=== PATIENT | male | born 1960 | race Caucasian/White ===

== ENCOUNTER 2024-07-15 09:44 | Observation (INO) | payer MEDICARE, SELFPAY ==
[2024-07-15] VITALS (25 sets, daily range): BP systolic 84–190; BP diastolic 39–122; PULSE 49–88; RESP 11–27; TEMP 36.7–36.8; O2SAT 90–100; BMI 28.4
--- NOTE | 2024-07-15 10:12 | ECG_ITS ---
[facility] Date: 2024-07-15 Pat Name: Josue Neely Department: Room: Gender: Male Speech Assistant: : 1960 Requested By: Louis Light Order Number: [id number] Reading MD: PARAMJIT FARAH Measurements Intervals [place] Rate: 56 P: 56 IA: 188 QRS: 67 QRSD: 89 T: -7 QT: 428 QTc: 415 Interpretive Statements SINUS BRADYCARDIA WITH SINUS ARRHYTHMIA LEFT VENTRICULAR HYPERTROPHY AND ST-T CHANGE [VOLTAGE CRITERIA PLUS ST/T ABNORMALITY] No previous ECG available for comparison Electronically Signed On 07-16-2024 19:27:57 SEAFOOD PROCESS WORKER by PARAMJIT FARAH [email or web address] [id number]
--- NOTE | 2024-07-15 10:12 | XR_ITS ---
WS: [id number] XR chest 1V portable [id number] REASON FOR EXAM: chest pain FINDINGS: Moderate tortuosity and ectasia of the thoracic aorta. Normal heart size. No acute pulmonary parenchymal or pleural abnormality. Moderate degenerative spondylosis in the thoracic spine. XR/XR chest 1V portable [id number] IMPRESSION: No acute chest abnormality.
[2024-07-15] MEDS: aspirin 325 mg Tablet PO (10:15)
[2024-07-15] MEDS: clopidogrel 300 mg Tablet 600 MG PO (10:15)
[2024-07-15] MEDS: heparin 5,000 unit/mL INJ 1 mL 4000 UNIT IVP (10:15)
[2024-07-15] MEDS: morphine 4 mg/mL SDV 1 mL IVP (10:26)
[2024-07-15] MEDS: ondansetron 2 mg/ML SDV 2 mL 4 MG IVP (10:26)
[2024-07-15 10:30] LABS: Basophils % 0.2 %; Eosinophils % 0.2 %; Hematocrit 43.6 % (37-53); Lymphocytes # 1.3 10^3/uL (0.8-4.8); Mean Corpuscular HGB Conc 30.3 g/dL (30-55); Mean Corpuscular Hemoglobin 23.7 pg (27-33); Mean Corpuscular Volume 78.1 fl (82-101); Mean Platelet Volume 9.5 fL (7.4-10.4); Monocytes % 7.6 %; Neutrophils # 10.52 10^3/uL (1.8-7.7); Neutrophils % 81.7 %; Nucleated Red Blood Cells % 0 %; Platelet Count 371 10^3/cmm (157-399); Red Blood Count 5.58 10^6/uL (3.85-5.65); Red Cell Distribution Width 15.5 % (12.1-15.1); White Blood Count 12.88 10^3/uL (3.29-11.43)
[2024-07-15] MEDS: heparin drip 25,000 UNIT/500 ML PREMIX 25 UNIT IV (10:30)
[2024-07-15] MEDS: DOPamine drip 400 MG/250 ML PREMIX 15.99 MG IV (10:30)
[2024-07-15] MEDS: sodium chloride 0.9% 1,000 ML 999 ML IV (10:34)
--- NOTE | 2024-07-15 10:41 | USCV_ITS ---
Josue Neely Age: 63 Gender: M : 1960 Exam Date: 07/15/2024 11:00 Ordering Phys: Louis Garrido DO Technologist: Darren Sheikh Exam Location: [facility] [place] Indication: acs BP: 190 / 122 HR: 77 Rhythm: Sinus Technical Quality: Adequate MEASUREMENTS (Male / Female) Normal Values 2D ECHO LV Diastolic Diameter PLAX 5.0 cm 4.2 - 5.9 / 3.9 - 5.3 cm IVS Diastolic Thickness 1.3 cm 0.6 - 1.0 / 0.6 - 0.9 cm IVS Systolic Thickness 1.6 cm LVPW Diastolic Thickness 1.8 cm 0.6 - 1.0 / 0.6 - 0.9 cm LVPW Systolic Thickness 2.0 cm LVOT Diameter 2.3 cm LV Ejection Fraction 2D Teich 51.4 % LV Ejection Fraction MOD 4C 72.0 % LV Ejection Fraction MOD 2C 61.3 % LV Ejection Fraction 2C AL 63.3 % LA Diameter 3.5 cm RA Systolic Volume 4C AL 37.5 ml RA Systolic Volume 4C MOD 38.1 ml LA Sys Volume AL 50.8 cm cubed LA Sys Volume Index AL 24.6 cm cubed/m squared Aorta at Sinotubular Diameter 2.9 cm IVC Diameter 1.4 cm M-MODE LA Ao Ratio MM 1.0 AV Cusp Separation MM 1.5 cm DOPPLER AV Peak Velocity 141.0 cm/s LVOT Peak Velocity 97.0 cm/s AV Area Cont Eq vti 3.0 cm squared AV Area Cont Eq pk 2.8 cm squared MV Peak Velocity 109.0 cm/s MV Area PHT 3.8 cm squared Mitral E to A Ratio 0.7 TV Peak Velocity 128.0 cm/s TR Peak Velocity 128.0 cm/s TR Peak Gradient 6.6 mmHg TR Mean Velocity 111.0 cm/s TR Mean Gradient 5.0 mmHg TR Velocity Time Integral 30.8 cm PV Peak Velocity 133.0 cm/s RV Ejection Time 0.2 s FINDINGS Left Ventricle Normal left ventricular size, systolic function and wall thickness, with no regional wall motion abnormalities. Left ventricular ejection fraction is estimated at 60 %. Grade I/IV diastolic dysfunction (abnormal relaxation filling pattern), normal to mildly elevated filling pressures. Right Ventricle The right ventricle is normal in size and function. Right Atrium The right atrium is normal in size. Left Atrium The left atrium is normal in size. Mitral Valve Mildly thickened mitral valve. No mitral valve stenosis. Trace mitral valve regurgitation. Aortic Valve Mild aortic valve calcification. No aortic valve stenosis. Trace aortic valve regurgitation. Tricuspid Valve Structurally normal tricuspid valve without significant stenosis or regurgitation. Pulmonic Valve Structurally normal pulmonic valve without significant stenosis. There is no pulmonic regurgitation. Pericardium Normal pericardium without effusion. Aorta Normal ascending aorta dimension. IVC The inferior vena cava appears normal. CONCLUSIONS Normal left ventricular size, systolic function and wall thickness, with no regional wall motion abnormalities. Left ventricular ejection fraction is estimated at 60 %. Grade I/IV diastolic dysfunction (abnormal relaxation filling pattern), normal to mildly elevated filling pressures. No significant valve abnormalities. There is no pericardial effusion. Right atrial pressure is around 5 mm of mercury. Jayda Reeves MD (Electronically Signed) Final Date: 15 July 2024 11:53 S
--- NOTE | 2024-07-15 10:42 | W.ED.NECK ---
HPI - Neck Pain/Injury General: Chief Complaint: Neck Pain/Injury Stated Complaint: severe neck pain Time Seen by Provider: 07/15/24 10:12 History of Present Illness: 63-year-old male presents emergency room complaining of neck pain nausea and vomiting. Symptoms began yesterday morning. When asked directly about chest pain he said he has had this intermittently since yesterday he has had some chest discomfort but not having any chest pain now later when I came back in the room he is grasping at his left side of his chest. He is pale and diaphoretic anxious has a sense of impending doom. During the course of the workup patient bradycardia down into the 40s see notes below he also became hypoxic and hypotensive. No recent trauma or fall. Not previously had neck pain problems in the past. He was told several years ago to have a stress test but never did have it done. He has no known history of cardiac disease or arrhythmias. Related Data Home Medications ?Medication ?Instructions ?Recorded ?Confirmed No Known Home Medications 07/15/24 07/15/24 Allergies Allergy/AdvReac Type Severity Reaction Status Date / Time No Known Allergies Allergy Verified 07/15/24 10:14 Review of Systems Const: Denies: fever(s) or chills Card: Denies: chest pain Resp: Reports: dyspnea GI: Denies: abdominal pain : Denies: dysuria, urinary frequency or urinary urgency Musc: Reports: neck pain; Denies: back pain Skin/Breast: Denies: rash Physical Exam Const: GENERAL APPEARANCE: cooperative ORIENTATION/CONSCIOUSNESS: Yes awake, Yes oriented to person, Yes oriented to place and Yes oriented to time HENMT: COMMON NORMALS: normocephalic, atraumatic and hearing grossly normal bilaterally HEAD & SCALP: normocephalic and atraumatic Resp: COMMON NORMALS: normal respiratory effort, No retractions, No use of accessory muscles and clear to auscultation bilaterally AUSCULTATION: clear to auscultation bilaterally Cardio: COMMON NORMALS: regular rate, regular rhythm and No murmurs present (Cardio) RATE: regular rate RHYTHM: regular rhythm GI: COMMON NORMALS: Soft to palpation and No hepatosplenomegaly present AUSCULTATION: Yes normoactive bowel sounds PALPATION: Yes Soft to palpation, No Tenderness to palpation present (GI), No Guarding due to palpation present (GI) and Yes No hepatosplenomegaly present Extremity: COMMON NORMALS: normal to inspection, capillary refill normal, no clubbing, cyanosis or edema, no calf tenderness and no pedal edema Neuro: SENSORIUM/ORIENTATION: Yes oriented to person, Yes oriented to place and Yes oriented to time Skin: COMMON NORMALS: no rashes or lesions noted GENERAL SKIN EXAM: no rashes or lesions noted Course Vital Signs: Vital signs: Vital Signs Temperature 98.1 F 07/15/24 10:01 Pulse Rate 69 07/15/24 14:15 Respiratory Rate 20 H 07/15/24 11:45 Blood Pressure 152/88 07/15/24 14:15 Pulse Oximetry 99 07/15/24 14:15 Oxygen Delivery Me thod Room Air 07/15/24 10:41 Oxygen Flow Rate 2 07/15/24 10:30 MDM - Neck Pain/Injury Medical Decision Making While we are still evaluating the patient began to bradycardia down into the 40s he was moved to one of the trauma rooms. There he was placed in Trendelenburg. He was given 1/2 mg atropine and started on dopamine his blood pressure decreased to the 80s systolic range and his oxygen saturations decreased to the upper 80s. He was put on 2 L of oxygen dopamine was started and he was placed in Trendelenburg and given fluids his blood pressure did improve. Currently he still has significant ST depression but he has a heart rate of 82 blood pressure 146/74 and oxygen on 2 L is 100%. Because he felt the patient was unstable asked Dr. Vasquez to evaluate him in conjunction with his ST depression. My suspicion was he would convert to a ST elevation ND. We did serial EKGs they continue to show inferior lateral ST depression with no ST elevation. Patient had mentation change as well. This was after the morphine. Dr. Reeves is asked that we get a stat echo to look for wall motion abnormality. He has been given Plavix and aspirin and heparin has been initiated. We were able to titrate the dopamine back off after fluids patient blood pressure is improved. Initial troponin negative. D-dimer slightly elevated CT of the neck and CTA of the chest there is no acute pathology neck is normal CTA chest did not show any PEs or any other abnormalities. We are able to titrate off the oxygen as well EKG changes began to resolve. Discussed Dr. aguirre again at this point she he wants to continue to follow. Echocardiogram did not show any wall motion abnormalities. Will admit the patient talk to Dr. Gonzalez. Consult Dr. Vasquez Medical Records I reviewed the patient's medical records. Lab Data I reviewed the patient's lab results. 07/15/24 10:24 07/15/24 10:24 Radiology Impressions Chest X-Ray 07/15/24 10:12 IMPRESSION: No acute chest abnormality. Cervical Spine CT 07/15/24 12:04 IMPRESSION: No evidence of acute fracture or dislocation. Chest CTA 07/15/24 12:04 IMPRESSION: 1. No evidence of pulmonary embolus 2. Dependent atelectasis. No focal consolidation. 3. Cardiomegaly. 4. No other acute findings. Laboratory Results WBC 12.88 10^3/uL (3.29-11.43) H 07/15/24 10:24 RBC 5.58 10^6/uL (3.85-5.65) 07/15/24 10:24 Hgb 13.20 g/dL (11.27-16.99) 07/15/24 10:24 Hct 43.6 % (37-53) 07/15/24 10:24 MCV 78.1 fl (82-101) L 07/15/24 10:24 MCH 23.7 pg (27-33) L 07/15/24 10:24 MCHC 30.3 g/dL (30-55) 07/15/24 10:24 RDW 15.5 % (12.1-15.1) H 07/15/24 10:24 Plt Count 371 10^3/cmm (157-399) 07/15/24 10:24 MPV 9.5 fL (7.4-10.4) 07/15/24 10:24 Neut % (Auto) 81.7 % 07/15/24 10:24 Lymph % (Auto) 10.0 % 07/15/24 10:24 Mcpherson % (Auto) 7.6 % 07/15/24 10:24 Eos % (Auto) 0.2 % 07/15/24 10:24 Baso % (Auto) 0.2 % 07/15/24 10:24 Neut # (Auto) 10.52 10^3/uL (1.8-7.7) H 07/15/24 10:24 Lymph # (Auto) 1.3 10^3/uL (0.8-4.8) 07/15/24 10:24 Mcpherson # (Auto) 1.0 10^3/uL (0.2-0.9) H 07/15/24 10:24 Eos # (Auto) 0.0 10^3/uL (0.0-0.8) 07/15/24 10:24 Baso # (Auto) 0.0 10^3/uL (0.0-0.1) 07/15/24 10:24 Nucleated RBC % (auto) 0 % 07/15/24 10:24 Nucleated RBCs # 0.0 /100WBC 07/15/24 10:24 D-Dimer 0.62 ug/mLFEU (0-0.59) H 07/15/24 10:24 Sodium 138 mmol/L (136-145) 07/15/24 10:24 Potassium 4.2 mmol/L (3.5-5.1) 07/15/24 10:24 Chloride 98 mmol/L (98-107) 07/15/24 10:24 Carbon Dioxide 22 mmol/L (22-29) 07/15/24 10:24 Anion Gap 22.2 (5-19) H 07/15/24 10:24 BUN 12 mg/dL (8-23) 07/15/24 10:24 Creatinine 1.1 mg/dL (0.7-1.2) 07/15/24 10:24 GFR Calculation 67.2 mL/min (90-130) L 07/15/24 10:24 Glucose 135 mg/dL (65-115) H 07/15/24 10:24 Calculated Osmolality 288 mOsm/kg (285-295) 07/15/24 10:24 Calcium 10.0 mg/dL (8.5-10.5) 07/15/24 10:24 Total Bilirubin 0.7 mg/dL (0.15-1.2) 07/15/24 10:24 AST 20 U/L (0-40) 07/15/24 10:24 ALT 10 U/L (0-41) 07/15/24 10:24 Alkaline Phosphatase 96 U/L (40-130) 07/15/24 10:24 Troponin T Baseline 10 ng/L (0-15) 07/15/24 10:24 Troponin T 120 Minute 10.03 ng/L (0-15) 07/15/24 12:44 Delta Troponin T 0.03 ABS# (0-10) 07/15/24 12:44 Total Protein 7.8 g/dL (6.6-8.7) 07/15/24 10:24 Albumin 4.8 g/dL (3.5-5.2) 07/15/24 10:24 Globulin 3.0 g/dL (1.3-4.6) 07/15/24 10:24 All radiology interpretation(s) finalized by discharge Discharge Plan Discharge Patient Disposition: Admitted As Inpatient Admit Provider: Karsten Ricardo Clinical Impression: ST segment depression, Bradycardia, Neck pain Condition: Stable Coding Level of Care Code ED Test And Turn Up Technician for Luz Laughlin
[2024-07-15 10:43] LABS: D Dimer 0.62 ug/mLFEU (0-0.59)
[2024-07-15 10:46] LABS: Troponin(5th) Baseline 10 ng/L (0-15)
[2024-07-15 10:48] LABS: Alanine Aminotransferase 10 U/L (0-41); Albumin Level 4.8 g/dL (3.5-5.2); Alkaline Phosphatase 96 U/L (40-130); Blood Urea Nitrogen 12 mg/dL (8-23); Carbon Dioxide 22 mmol/L (22-29); Chloride 98 mmol/L (98-107); Glomerular Filtration Rate 67.2 mL/min (90-130); Glucose 135 mg/dL (65-115); Osmolality Calculated 288 mOsm/kg (285-295); Sodium 138 mmol/L (136-145); Total Bilirubin 0.7 mg/dL (0.15-1.2); Total Protein 7.8 g/dL (6.6-8.7)
[2024-07-15 10:54] LABS: Anion Gap 22.2 (5-19); Aspartate Amino Transferase 20 U/L (0-40); Potassium 4.2 mmol/L (3.5-5.1)
--- NOTE | 2024-07-15 11:36 | P.CONIM_ITS ---
Providers/Reason For Consult 2 Consulting Physician/Specialty*: Jayda Reeves MD Reason for Consult*: Abnormal EKG, neck pain Requesting Physician: Dr. Garrido History of Present Illness History of Present Illness This is a very pleasant 63-year-old gentleman that presented to the emergency room with main complaint of neck pain, nausea, vomiting. He stated symptoms began yesterday morning. He denies any chest pain at this time. Denies any history of coronary artery disease or any cardiac issues. He states he does not see a doctor much. Reports a history of high blood pressure. No nicotine use per patient. During the course of his workup he did have some bradycardia down in the 40s. He had atropine and was placed on a dopamine drip. His EKG showed ST depression in inferolateral leads consistent with possible left ventricular hypertrophy. We do not have any other EKGs for comparison. At this time patient is chest pain-free. Oxygen saturation 96% on room air. Review of Systems 2 Narrative: Consitutional: denies fever, chills, body aches, or changes in appetite, denies abnormal weight loss Eyes: Denies changes in vision Card: Denies chest pain, palpitations, irregular heart rhythm, edema, syncope, shortness of breath, orthopnea, leg pain with exertion Resp: Denies shortness of breath, denies hemoptysis, denies cough GI: denies abdominal pain, denies nausea or voimting, denies blood in stool : denies blood in urine, denies dysuria Musc: reports neck pain, denies back pain, jaw pain or chest pain Skin: Denies rash, lesions, or wounds, denies changes to skin color Neuro: Denies nubmness in extremities, h/a, s/s of stroke Diogo: Denies easy bruiding/bleeding Medications/Allergies Home Medications ?Medication ?Instructions ?Recorded ?Confirmed ?Last Taken ?Type No Known Home Medications 07/15/2407/02 Unknown History Allergies Allergy/AdvReac Type Severity Reaction Status Date / Time No Known Allergies Allergy Verified 07/15/24 10:14 Current Medications Generic Name Dose Route Start Last Admin Trade Name Freq PRN Reason Stop Dose Admin Heparin Sodium/Sodium Chloride 25,000 unit in 500 mls @ 0 mls/hr 07/15/24 10:30 07/15/24 10:30 Heparin Drip IV 14.66 unit/kg/hr CONT RENA 25 mls/hr Administration Protocol Per Protocol Dopamine HCl/Dextrose 400 mg in 250 mls @ 15.989 mls/hr 07/15/24 11:00 07/15/24 10:52 Intropin Drip IV 3 mcg/kg/min CONT RENA 9.59 mls/hr Titration Protocol 5 MCG/KG/MIN Sodium Chloride 1,000 mls @ 999 mls/hr 07/15/24 11:12 07/15/24 10:34 Sodium Chloride 0.9% IV 07/15/24 12:12 999 mls/hr .Q1H1M ONE Administration Vitals/I&O/Wt Last Vital Signs Temp 98.1 F 07/15/24 10:01 Pulse 78 07/15/24 10:41 Resp 18 07/15/24 10:41 BP 190/122 07/15/24 10:45 Pulse Ox 96 07/15/24 10:41 O2 Del Method Room Air 07/15/24 10:41 O2 Flow Rate 2 07/15/24 10:30 07/14/24 07/15/24 07/15/24 22:59 06:59 14:59 Intake Total 5.863 / 5.863 Balance 5.863 / 5.863 Weight last 48 hrs Weight 188 lb Physical Exam 2 Narrative: General: No apparent distress, healthy appearing, well nourished HENMT: normoceophalic Muskuloskeletal: Full ROM, shaking slightly Respiratory: Normal respiratory effort, clear to auscultation bilaterally throughout all lung paredes, no use of accessory muscles Cardio: No JVD, regular rate, regular rhythm, S1 S2 normal, no murmurs, peripheral pulses 2+ radial palpated bilaterally GI: Normal to inspection, nondistended Extremities: Full ROM, normal, normal capillary refill, no cyanosis or edema Neuro: Alert and oriented x4, no focal motor deficits Psych: Affect normal, denies suicidal ideation, mental status grossly normal Skin: No rashes or lesions noted, no wounds Data 07/15/24 10:24 07/15/24 10:24 A&P Assessment and plan (1) Neck pain: (2) ST segment depression: (3) Hypertension: Qualifiers: Hypertension type: primary hypertension Qualified Code(s): I10 - Essential (primary) hypertension (4) Bradycardia: Plan At this time patient has ST depression but no chest pain present. Our recommendation is to trend troponin, serial EKG, echo, agree with heparin drip. Will continue to monitor for worsening symptoms. At this time, no evidence of acute NM. Further recommendations to be made after workup is done. Thank you, Dr. Garrido, for allowing us to care for this gentleman. PDMP PDMP Reviewed: Not Reviewed Consult Attestations 2 Medical Necessity Statement: Deferred to primary. Coding Level of Care Code Acute Code for Chg Fwd Diagnoses Neck pain M54.2 ST segment depression R94.31 Primary hypertension I10 Hypertension type: primary hypertension Bradycardia R00.1
--- NOTE | 2024-07-15 12:04 | CT_ITS ---
WS: [id number] CT CERVICAL TRAUMA TECHNIQUE: Noncontrast CT of the cervical spine with coronal and sagittal reformatted images. CLINICAL INFORMATION: neck pain COMPARISON: None. DLP: 236.[address] scans at [facility] use at least one of these dose optimization techniques: automated exposure control; mA and/or kV adjustment per patient size (includes targeted exams where dose is matched to clinical indication); or iterative reconstruction. FINDINGS: Straightening of the normal cervical lordosis. Moderate spondylitic changes. Disc narrowing worse at C5-C6 and C6-C7. Normal craniocervical junction. Normal C1-C2 articulation. Dens is normal in appearance. Normal occipital condyles. No high-grade spinal canal narrowing. Normal C1 ring. No evidence of acute fracture or dislocation. Normal prevertebral soft tissues. Mastoids air cells are well aerated. CT/CT cervical spin wo con* [id number] IMPRESSION: No evidence of acute fracture or dislocation.
--- NOTE | 2024-07-15 12:04 | CT_ITS ---
WS: [id number] CTA OF THE CHEST WITH PULMONARY EMBOLISM PROTOCOL TECHNIQUE: High-resolution contrast enhanced CTA of the chest with coronal and sagittal reformatted images with pulmonary embolism protocol. MIP images are also reviewed. CLINICAL INFORMATION: elevated d dimer COMPARISON: None. DLP: 482.[address] scans at [facility] use at least one of these dose optimization techniques: automated exposure control; mA and/or kV adjustment per patient size (includes targeted exams where dose is matched to clinical indication); or iterative reconstruction. FINDINGS: Beam-hardening artifact degrades some images. Proximal main pulmonary arteries are normal. No evidence of pulmonary embolus. Aortic calcification. Coronary calcification. Normal caliber thoracic aorta. No mediastinal or hilar lymphadenopathy. No axillary lymphadenopathy. Dependent atelectasis. No focal consolidation. Chronic emphysematous changes. Shallow inspiration Adrenal glands are normal. Splenic artery calcification. Tiny esophageal hiatal hernia. CT/CT angio chest PE protcl [id number] IMPRESSION: 1. No evidence of pulmonary embolus 2. Dependent atelectasis. No focal consolidation. 3. Cardiomegaly. 4. No other acute findings.
--- NOTE | 2024-07-15 12:12 | ECG_ITS ---
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: : 1960 Requested By: Louis Light Order Number: [id number] Heather MD: PARAMJIT FARAH Measurements Intervals [place] Rate: 48 P: 172 DE: 194 QRS: 159 QRSD: 89 T: 252 QT: 471 QTc: 424 Interpretive Statements SINUS BRADYCARDIA ARM LEADS REVERSED [INVERTED P AND QRS IN I] Compared to ECG 07/15/2024 10:19:32 Sinus arrhythmia no longer present Left ventricular hypertrophy no longer present ST (T wave) deviation no longer present Electronically Signed On 07-16-2024 19:33:45 AIRCRAFT ENGINE TECHNICIAN by PARAMJIT FARAH [id number]
[2024-07-15 13:16] LABS: Troponin 5 2HR 10.03 ng/L (0-15); Troponin 5 2HR Delta 0.03 ABS# (0-10)
--- NOTE | 2024-07-15 14:03 | ECG_ITS ---
[employer] Test Date: 2024-07-15 Pat Name: Josue Neely Department: Room: Gender: Male Senior Advisor: : 1960 Requested By: Louis Light Order Number: [id number] Heather MD: PARAMJIT FARAH Measurements Intervals [place] Rate: 78 P: 65 AR: 170 QRS: 67 QRSD: 93 T: 71 QT: 390 QTc: 447 Interpretive Statements SINUS RHYTHM LEFT VENTRICULAR HYPERTROPHY AND ST-T CHANGE [VOLTAGE CRITERIA PLUS ST/T ABNORMALITY] Compared to ECG 07/15/2024 10:32:57 Ectopic atrial rhythm no longer present ST (T wave) deviation still present Electronically Signed On 07-16-2024 19:18:34 EQUITY RESEARCH ANALYST by PARAMJIT FARAH [id number]
--- NOTE | 2024-07-15 14:03 | ECG_ITS ---
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: : 1960 Requested By: Louis Light Order Number: [id number] Reading MD: PARAMJIT FARAH Measurements Intervals [place] Rate: 73 P: -51 MA: 160 QRS: 63 QRSD: 89 T: 265 QT: 408 QTc: 451 Interpretive Statements ECTOPIC ATRIAL RHYTHM LEFT VENTRICULAR HYPERTROPHY AND ST-T CHANGE [VOLTAGE CRITERIA PLUS ST/T ABNORMALITY] inferolateral ST depression cannot rule out ischemia may be repolarization abnormality Compared to ECG 07/15/2024 10:27:40 Ectopic atrial rhythm now present Sinus rhythm no longer present Myocardial infarct finding no longer present ST (T wave) deviation still present Electronically Signed On 07-16-2024 19:27:41 PLANT CONTROL OPERATOR by PARAMJIT FARAH [email or web address] [id number]
--- NOTE | 2024-07-15 14:03 | ECG_ITS ---
[employer] Test Date: 2024-07-15 Pat Name: Josue Neely Department: Room: Gender: Male Puppy Sitter: : 1960 Requested By: Louis Light Order Number: [id number] Heather MD: PARAMJIT FARAH Measurements Intervals [place] Rate: 64 P: 41 MO: 189 QRS: 52 QRSD: 88 T: 49 QT: 450 QTc: 466 Interpretive Statements SINUS RHYTHM WITH OCCASIONAL SUPRAVENTRICULAR PREMATURE COMPLEXES LEFT VENTRICULAR HYPERTROPHY AND ST-T CHANGE [VOLTAGE CRITERIA PLUS ST/T ABNORMALITY] POSSIBLE SEPTAL MYOCARDIAL INFARCTION , PROBABLY OLD [30 ms Q WAVE IN V1/V2] Compared to ECG 07/15/2024 10:26:00 Left ventricular hypertrophy now present ST (T wave) deviation now present Myocardial infarct finding now present Sinus bradycardia no longer present Electronically Signed On 07-16-2024 19:27:50 CRIME SCENE ANALYST by PARAMJIT FARAH [email or web address] [id number]
--- NOTE | 2024-07-15 14:04 | ECG_ITS ---
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: : 1960 Requested By: Louis Light Order Number: [id number] Heather MD: PARAMJIT FARAH Measurements Intervals [place] Rate: 91 P: 55 [place]: 193 QRS: 47 QRSD: 90 T: 233 QT: 337 QTc: 416 Interpretive Statements SINUS RHYTHM POSSIBLE RIGHT ATRIAL ENLARGEMENT [0.25mV P-WAVE] LEFT ATRIAL ENLARGEMENT [-0.15mV P-WAVE IN V1/V2] LEFT VENTRICULAR HYPERTROPHY AND ST-T CHANGE [VOLTAGE CRITERIA PLUS ST/T ABNORMALITY] INTERPRETATION BASED ON A DEFAULT AGE OF 40 YEARS No previous ECG available for comparison Electronically Signed On 07-16-2024 19:28:08 UNIT AID by PARAMJIT FARAH [email or web address] [id number]
[2024-07-15 15:32] LABS: Glucose Point of Care 112 mg/dL (70-110)
[2024-07-15 15:58] LABS: Partial Thromboplastin Time 37.3 SECONDS (23.9-36.7)
--- NOTE | 2024-07-15 16:12 | ECG_ITS ---
[employer] Test Date: 2024-07-15 Pat Name: Josue Neely Department: Room: 112 Gender: Male Mortgage Operations Manager: : 1960 Requested By: Louis Light Order Number: [id number] Reading MD: PARAMJIT FARAH Measurements Intervals [place] Rate: 75 P: 18 PA: 187 QRS: 40 QRSD: 93 T: 249 QT: 397 QTc: 443 Interpretive Statements SINUS RHYTHM LEFT VENTRICULAR HYPERTROPHY AND ST-T CHANGE [VOLTAGE CRITERIA PLUS ST/T ABNORMALITY] Compared to ECG 07/15/2024 10:39:26 No significant changes Electronically Signed On 07-16-2024 19:33:18 CONDUIT INSTALLER by PARAMJIT FARAH [email or web address] [id number]
--- NOTE | 2024-07-15 16:36 | P.HP_ITS ---
Providers/Chief Complaint 2 Admitting Physician: Karsten Ricardo Chief Complaint: severe neck pain History of Present Illness 55-year-old male with no significant past medical history presents with neck pain after lifting firewood a few nights ago. The patient describes neck pain that started while lifting firewood. He denies any radiation of pain into the arms, numbness, tingling, or weakness. Associated symptoms include fatigue. The patient denies chest pain, shortness of breath, leg pain, back pain, or urinary issues. Noted difficulty with turning his head right and left with out pain. No alleviating factors. Initial evaluation in the ER revealed: - Laboratory Findings: WBC 12.8, hemoglobin 13, hematocrit 43, platelets 371, sodium 138, potassium 4.2, chloride 98, bicarbonate 22, BUN 22, creatinine 1.1, troponin T 0.03 baseline and 0.10 repeat, D-dimer 0.62. - Imaging Studies: Chest x-ray without acute cardiopulmonary abnormality, CT cervical spine without fracture or dislocation, CT chest negative for pulmonary embolism with cardiomegaly and dependent atelectasis. The patient was briefly hypoxic and hypotensive with bradycardia to the 40s, treated with atropine and started on a dopamine drip. Cardiology was consulted and performed an echocardiogram showing an ejection fraction of 60% without regional wall motion abnormalities, grade 1 diastolic dysfunction, and no valvular abnormalities. He was given aspirin 325 mg, loaded with Plavix 600 mg, and given a heparin bolus, but no drip was initiated after cardiology evaluation did not suggest acute coronary syndrome. The patient is now normotensive and no longer hypoxic or requiring oxygen. Review of Systems 2 General: Reports: 10 or more systems reviewed and unremarkable except in HPI and below Medications/Allergies Home Medications ?Medication ?Instructions ?Recorded ?Confirmed ?Last Taken ?Type No Known Home Medications 07/15/2407/02 Unknown History Allergies Allergy/AdvReac Type Severity Reaction Status Date / Time No Known Allergies Allergy Verified 07/15/24 10:14 Vitals/I&O/Wt Last Vital Signs Temp 98.1 F 07/15/24 10:01 Pulse 78 07/15/24 16:10 Resp 18 07/15/24 16:10 BP 171/93 07/15/24 16:10 Pulse Ox 92 07/15/24 16:10 O2 Del Method Room Air 07/15/24 10:41 O2 Flow Rate 2 07/15/24 10:30 07/15/24 07/15/24 07/15/24 06:59 14:59 22:59 Intake Total 99.444 / 99.444 1000 / 1099.444 Balance 99.444 / 99.444 1000 / 1099.444 Weight last 48 hrs Weight 85.275 kg Physical Exam 2 Narrative: Physical Exam General: 55-year-old male, sitting up in bed, in no acute distress HEENT: Grossly unremarkable Neck: - Decreased range of motion with turning head right and left due to pain - No lymphadenopathy or thyromegaly - No JVD Cardiovascular: - Regular rate and rhythm - Normal S1 and S2, no murmurs, rubs, or gallops Respiratory: - Clear to auscultation bilaterally - No wheezes, rales, or rhonchi Abdomen: - Soft, non-tender, non-distended - Normoactive bowel sounds - No organomegaly or masses Neurologic: - Alert and oriented x3 - CN II-XII grossly intact - No focal neurologic deficits Musculoskeletal: - Neck pain with movement - No tenderness to palpation over cervic al spine - Good strength and sensation in upper a nd lower extremities Data 07/15/24 10:24 07/15/24 10:24 A&P Assessment and plan (1) Bradycardia: (2) Hypertension: Qualifiers: Hypertension type: primary hypertension Qualified Code(s): I10 - Essential (primary) hypertension (3) Neck pain: Plan Bradycardia - Episode of bradycardia in ER requiring atropine and briefly on dopamine drip, now resolved. - EKG initially showing ST-depression per ER for with cardiology was consulted. Echo appeared stable. Troponin remained negative. - No longer on dopanine. - No futher cardiac work up planned Plan: 1. Telemetry monitoring overnight to assess for recurrence. 2. Discontinued dopamine if heart rate remains stable. 3. Consider outpatient stress test Neck Pain - Likely musculoskeletal strain from lifting firewood, without evidence of fracture or dislocation on CT cervical spine. Differential Diagnosis: 1. Muscle strain from heavy lifting. 2. Less likely cervical radiculopathy, though no significant neurologic deficits noted. Plan: 1. Muscle relaxant and Tylenol for pain control. 2. Occupational therapy for range of motion exercises. 3. Reassess symptoms and consider outpatient MRI if no improvement. Marijuana Use -Current marijuana use via pipe, frequency unclear. Plan: 1. [facility] [place] on health risks of marijuana smoking. Hypertension - Blood pressure 152/88 on arrival, likely exacerbated by acute pain and stress. Plan: 1. Continue to monitor blood pressure during hospitalization. 2. Consider initiating antihypertensive therapy if persistently elevated. PDMP PDMP Reviewed: Not Reviewed Attestations 2 Medical Necessity Statement*: Anticipate less than 2 midnight stay for eval and treatment Coding Level of Care Code Acute Code for Chg Fwd Diagnoses Bradycardia R00.1 Primary hypertension I10 Hypertension type: primary hypertension Neck pain M54.2
[2024-07-15 17:41] LABS: Troponin 5 6HR 10.47 ng/L (0-15); Troponin 5 6HR Delta 0.47 ng/L (0-12)
[2024-07-15] MEDS: enoxaparin 40 mg/0.4 mL Syringe SUBCUT (18:21)
[2024-07-15] MEDS: HYDROcodone-acetaminophen 5-325 mg Tablet 1 TAB PO (20:33)
[2024-07-15 22:14] LABS: Amphetamines Screen Urine Negative (Negative); Barbiturates Screen Urine Negative (Negative); Benzodiazepines Screen Urine Negative (Negative); Cocaine Screen Urine Negative (Negative); Opiate Screen Urine Positive (Negative); PCP Screen Urine Negative (Negative); THC Screen Urine Positive (Negative)
[2024-07-16] VITALS: BP 151/84; PULSE 97; RESP 19; TEMP 36.8; O2SAT 95
[2024-07-16 04:00] VITALS: BP 168/96; PULSE 90; RESP 14; TEMP 36.9; O2SAT 97
[2024-07-16 04:08] LABS: Basophils % 0.2 %; Eosinophils % 0.1 %; Hematocrit 37.7 % (37-53); Lymphocytes # 1.4 10^3/uL (0.8-4.8); Lymphocytes % 11.1 %; Mean Corpuscular Volume 77.4 fl (82-101); Mean Platelet Volume 10.4 fL (7.4-10.4); Monocytes # 1.4 10^3/uL (0.2-0.9); Monocytes % 11.1 %; Neutrophils % 77.2 %; Nucleated Red Blood Cells % 0 %; Platelet Count 320 10^3/cmm (157-399); Red Blood Count 4.87 10^6/uL (3.85-5.65); Red Cell Distribution Width 15.7 % (12.1-15.1); White Blood Count 12.94 10^3/uL (3.29-11.43)
[2024-07-16 04:27] LABS: Chol HDL Ratio 3.09 mg/dL (1.0-5.00); Cholesterol 179 mg/dL (0-200); HDL Cholesterol 58 mg/dL (60-100); LDL Cholesterol Calculated 106 mg/dL (50-129); LDL HDL Ratio 1.83 RATIO (0.00-3.22); Triglycerides 73 mg/dL (0-150)
[2024-07-16 04:36] LABS: Alanine Aminotransferase 8 U/L (0-41); Alkaline Phosphatase 81 U/L (40-130); Anion Gap 15.9 (5-19); Aspartate Amino Transferase 14 U/L (0-40); Blood Urea Nitrogen 16 mg/dL (8-23); Calcium 9.2 mg/dL (8.5-10.5); Carbon Dioxide 24 mmol/L (22-29); Chloride 101 mmol/L (98-107); Glucose 111 mg/dL (65-115); Osmolality Calculated 286 mOsm/kg (285-295); Potassium 3.9 mmol/L (3.5-5.1); Sodium 137 mmol/L (136-145); Thyroid Stimulating Hormone 0.51 uIU/mL (0.27-4.20); Total Bilirubin 0.5 mg/dL (0.15-1.2)
[2024-07-16 04:42] LABS: Estmated Average Glucose 94; Hemoglobin A1C 4.9 % (4.0-6.0)
[2024-07-16 06:00] VITALS: PULSE 76
[2024-07-16 07:14] VITALS: BP 164/96; PULSE 76; RESP 17; TEMP 36.4; O2SAT 96
[2024-07-16] MEDS: acetaminophen 325 mg Tablet 650 MG PO (08:14)
--- NOTE | 2024-07-16 10:06 | PC.CHAP ---
Pastoral Care Encounter/Spiritual Assessment Type of Contact [] Declined media theorist and author of visit [] Patient/Family/Request visit [] Outpatient visit [] Follow-up visit [] Physician referral [] Code/Alert [] Routine visit [] Staff referral [] Actively dying [] Patient sleeping [] Family support [] [x] Out of room [] Palliative care [] [] Receiving care in room [] Pre-surgical visit [] Trauma [] Long length of stay [] ICU visit [] Other: Relational/Emotional Strength [] Patient feels connected with others/family/visitors/staff [] Distress [] Loneliness/isolation [] Abandonment Spirituality of Patient [] Person of Suz[place] [] Attends [employer] of their [place] [] Believes in Prayer [] Reads Bible or Mormon materials [] There are Spiritual issues to be addressed 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 [] Prayer [] Active listening [] Non-anxious presence [] Spiritual/emotional support [] Crisis/trauma care [] Spiritual counseling [] Bereavement support [] Provided bereavement packet [] Provided Bible/devotional materials [] Provided toy/stuffed animal, coloring book to patient or family member [] Provided Communion [] Anointing/[place] [] Salvation [] Completed spiritual assessment [] Other: Impact on Illness or Injury [] Angry [] Fearful [] Anxious [] Often cries [] Exhaustion [] Unable to work [] Unable to attend congregation [] Unable to walk/stand [] Unable to read [] Unable to drive [] Unable to eat/drink [] Unable to sleep [] Unable to be with family [] Patient intubated [] Other: Summary Time spent with patient
[2024-07-16 11:26] VITALS: BP 169/103; PULSE 75; RESP 11; TEMP 36.5; O2SAT 96
--- NOTE | 2024-07-16 13:09 | PC.NURSE ---
shift report Pt reports of a headache and neck pain this morning. Gave 650 mg of Tylenol PRN for a pain scale of 6/10. Reassess pain 2 hrs after and pt stated, it went away. Applied warm compress as well for neck pain. pt stated it relieved his pain.
[2024-07-16 14:23] VITALS: BP 169/100; PULSE 72; O2SAT 96
--- NOTE | 2024-07-22 14:29 | P.DS_ITS ---
Discharge Providers Date of Admission: 07/15/24 14:23 Date of Discharge: July 16, 2024 Attending Provider at Admission: Karsten Ricardo Attending Provider at Discharge: Karsten Ricardo Diagnoses at Discharge Discharge Diagnosis (1) Bradycardia: Status: Resolved (2) Hypertension: Status: Acute Qualifiers: Hypertension type: primary hypertension Qualified Code(s): I10 - Essential (primary) hypertension (3) Neck pain: Status: Acute Reason for Visit Reason for Visit: severe neck pain Hospital Course Hospital Course 55-year-old male with no significant past medical history presents with neck pain after lifting firewood a few nights ago. The patient describes neck pain that started while lifting firewood. He denies any radiation of pain into the arms, numbness, tingling, or weakness. Associated symptoms include fatigue. The patient denies chest pain, shortness of breath, leg pain, back pain, or urinary issues. Noted difficulty with turning his head right and left with out pain. No alleviating factors. Initial evaluation in the ER revealed: - Laboratory Findings: WBC 12.8, hemoglobin 13, hematocrit 43, platelets 371, sodium 138, potassium 4.2, chloride 98, bicarbonate 22, BUN 22, creatinine 1.1, troponin T 0.03 baseline and 0.10 repeat, D-dimer 0.62. - Imaging Studies: Chest x-ray without acute cardiopulmonary abnormality, CT cervical spine without fracture or dislocation, CT chest negative for pulmonary embolism with cardiomegaly and dependent atelectasis. The patient was briefly hypoxic and hypotensive with bradycardia to the 40s, treated with atropine and started on a dopamine drip. Cardiology was consulted and performed an echocardiogram showing an ejection fraction of 60% without regional wall motion abnormalities, grade 1 diastolic dysfunction, and no valvular abnormalities. He was given aspirin 325 mg, loaded with Plavix 600 mg, and given a heparin bolus, but no drip was initiated after cardiology evaluation did not suggest acute coronary syndrome. patient was admitted to the hospital and monitored overnight. On day 2 of hospitalization he was wanting to be di scharged home. Stated that his mobility and pain in his neck had improved. Had no limitations with ambulation. Did not have any recurrence of hypotension or bradycardia on cardiac step-down unit. Patient had denied any chest discomfort. Also did not have any shortness of breath. Discussed with Cardiology who did not have any further recommendations and cleared patient for discharge. Patient was counseled on home blood pressure monitoring and recording given hypertensive episodes which may have correlated with patient's pain however I did tell him that he may very well likely have underlying hypertensive disorder. Verbalized understanding of this. Patient was discharged in stable condition. Advised him to follow up with primary care physician within 1 week after discharge. Physical Exam Narrative: Physical Exam General: 55-year-old male, sitting up in bed, in no acute distress HEENT: Grossly unremarkable Neck: - Improved range of motion. - No lymphadenopathy or thyromegaly - No JVD Cardiovascular: - Regular rate and rhythm - Normal S1 and S2, no murmurs, rubs, or gallops Respiratory: - Clear to auscultation bilaterally - No wheezes, rales, or rhonchi Abdomen: - Soft, non-tender, non-distended - Normoactive bowel sounds - No organomegaly or masses Neurologic: - Alert and oriented x3 - CN II-XII grossly intact - No focal neurologic deficits Musculoskeletal: - Neck pain with movement - No tenderness to palpation over cervic al spine - Good strength and sensation in upper a nd lower extremities Discharge Data Studies Completed and Pending Completed Studies During Hospitalization Category Date Time Status CT angio chest PE protcl [id number] Stat Cat Scan 07/15/24 12:[address] cervical spin wo con* [id number] Stat Cat Scan 07/15/24 12:04 Completed XR chest 1V portable [id number] Stat Exams 07/15/24 10:12 Completed US echo complete [CV. echo complete* [id number]] Stat Ultrasound 07/15/24 10:41 Completed Radiology Impressions Chest X-Ray 07/15/24 10:12 IMPRESSION: No acute chest abnormality. Cervical Spine CT 07/15/24 12:04 IMPRESSION: No evidence of acute fracture or dislocation. Chest CTA 07/15/24 12:04 IMPRESSION: 1. No evidence of pulmonary embolus 2. Dependent atelectasis. No focal consolidation. 3. Cardiomegaly. 4. No other acute findings. Laboratory Results WBC 12.94 10^3/uL (3.29-11.43) H 07/16/24 02:22 RBC 4.87 10^6/uL (3.85-5.65) 07/16/24 02:22 Hgb 11.70 g/dL (11.27-16.99) 07/16/24 02:22 Hct 37.7 % (37-53) 07/16/24 02:22 MCV 77.4 fl (82-101) L 07/16/24 02:22 MCH 24.0 pg (27-33) L 07/16/24 02:22 MCHC 31.0 g/dL (30-55) 07/16/24 02:22 RDW 15.7 % (12.1-15.1) H 07/16/24 02:22 Plt Count 320 10^3/cmm (157-399) 07/16/24 02:22 MPV 10.4 fL (7.4-10.4) 07/16/24 02:22 Neut % (Auto) 77.2 % 07/16/24 02:22 Lymph % (Auto) 11.1 % 07/16/24 02:22 Jenkins % (Auto) 11.1 % 07/16/24 02:22 Eos % (Auto) 0.1 % 07/16/24 02:22 Baso % (Auto) 0.2 % 07/16/24 02:22 Neut # (Auto) 10.00 10^3/uL (1.8-7.7) H 07/16/24 02:22 Lymph # (Auto) 1.4 10^3/uL (0.8-4.8) 07/16/24 02:22 Jenkins # (Auto) 1.4 10^3/uL (0.2-0.9) H 07/16/24 02:22 Eos # (Auto) 0.0 10^3/uL (0.0-0.8) 07/16/24 02:22 Baso # (Auto) 0.0 10^3/uL (0.0-0.1) 07/16/24 02:22 Nucleated RBC % (auto) 0 % 07/16/24 02:22 Nucleated RBCs # 0.0 /100WBC 07/16/24 02:22 APTT 37.3 SECONDS (23.9-36.7) H 07/15/24 15:08 D-Dimer 0.62 ug/mLFEU (0-0.59) H 07/15/24 10:24 Sodium 137 mmol/L (136-145) 07/16/24 02:22 Potassium 3.9 mmol/L (3.5-5.1) 07/16/24 02:22 Chloride 101 mmol/L (98-107) 07/16/24 02:22 Carbon Dioxide 24 mmol/L (22-29) 07/16/24 02:22 Anion Gap 15.9 (5-19) 07/16/24 02:22 BUN 16 mg/dL (8-23) 07/16/24 02:22 Creatinine 1.0 mg/dL (0.7-1.2) 07/16/24 02:22 GFR Calculation 75.0 mL/min (90-130) L 07/16/24 02:22 Glucose 111 mg/dL (65-115) 07/16/24 02:22 POC Glucose 112 mg/dL (70-110) H 07/15/24 10:10 Estimat Average Glucose 94 07/16/24 02:22 Hemoglobin A1c 4.9 % (4.0-6.0) 07/16/24 02:22 Calculated Osmolality 286 mOsm/kg (285-295) 07/16/24 02:22 Calcium 9.2 mg/dL (8.5-10.5) 07/16/24 02:22 Total Bilirubin 0.5 mg/dL (0.15-1.2) 07/16/24 02:22 AST 14 U/L (0-40) 07/16/24 02:22 ALT 8 U/L (0-41) 07/16/24 02:22 Alkaline Phosphatase 81 U/L (40-130) 07/16/24 02:22 Troponin T Baseline 10 ng/L (0-15) 07/15/24 10:24 Troponin T 120 Minute 10.03 ng/L (0-15) 07/15/24 12:44 Delta Troponin T 0.03 ABS# (0-10) 07/15/24 12:44 Troponin T Hi Sens 6Hr 10.47 ng/L (0-15) 07/15/24 16:32 Troponin T Hi Sens 6Hr Delta 0.47 ng/L (0-12) 07/15/24 16:32 Total Protein 7.0 g/dL (6.6-8.7) 07/16/24 02:22 Albumin 4.0 g/dL (3.5-5.2) 07/16/24 02:22 Globulin 3.0 g/dL (1.3-4.6) 07/16/24 02:22 Triglycerides 73 mg/dL (0-150) 07/16/24 02:22 Cholesterol 179 mg/dL (0-200) 07/16/24 02:22 LDL Cholesterol, Calc 106 mg/dL (50-129) 07/16/24 02:22 HDL Cholesterol 58 mg/dL (60-100) L 07/16/24 02:22 LDL/HDL Ratio 1.83 RATIO (0.00-3.22) 07/16/24 02:22 Cholesterol/HDL Ratio 3.09 mg/dL (1.0-5.00) 07/16/24 02:22 TSH 0.51 uIU/mL (0.27-4.20) 07/16/24 02:22 Urine Opiates Screen Positive ng/mL (Negative) H 07/15/24 21:50 Ur Barbiturates Screen Negative ng/mL (Negative) 07/15/24 21:50 Ur Phencyclidine Scrn Negative ng/mL (Negative) 07/15/24 21:50 Ur Amphetamines Screen Negative ng/mL (Negative) 07/15/24 21:50 U Benzodiazepines Scrn Negative ng/mL (Negative) 07/15/24 21:50 Urine Cocaine Screen Negative ng/mL (Negative) 07/15/24 21:50 U Marijuana (THC) Screen Positive ng/mL (Negative) H 07/15/24 21:50 Vitals Last Vital Signs Temp 97.7 F 07/16/24 11:26 Pulse 72 07/16/24 14:23 Resp 11 L 07/16/24 11:26 BP 169/100 07/16/24 14:23 Pulse Ox 96 07/16/24 14:23 O2 Del Method Room Air 07/16/24 11:26 O2 Flow Rate 2 07/15/24 10:30 Discharge Plan Discharge Patient Disposition: Home Condition: Stable Prescriptions: Continued No Known Home Medications Discharge Orders: Discharge Order (Routine); Ordered 07/16/24 Ordered By: Karsten Ricardo Referrals: Vannessa Varma FNP [Referring] - ( [phone] Please call Thursday to establish primary care) Discharge Diet: Usual diet Discharge Activity: Increase activity as tolerated Patient Instructions: Hypertension (DC), Neck Pain (DC), Chest Pain Stoplight, Opioid Safety Activity Restrictions/Additional Instructions: Please establish a primary doctor. Check your blood pressure at home twice a day. Applied warm compress to your neck as tolerated for pain relief. Discharge Attestations Time Spent in Discharge Care*: greater than 30 min Status at Discharge: Cognitive status at discharge: cognitively intact , Behavioral status at discharge: cooperative , Functional status at discharge: independent ambulation , Overall status at discharge: patient is back to baseline Quality Metrics Clinical Quality Measures [ No reported AMI, CVA or VTE this stay] Coding Level of Care Code Acute Code for Chg Fwd Diagnoses Bradycardia R00.1 Primary hypertension I10 Hypertension type: primary hypertension Neck pain M54.2
== END 2024-07-16 15:16 | disposition home or self-care (01) ==
LOC: ER 13:56 → CSU 14:56
PROVIDERS: Admitting Provider Hospitalist; Emergency Provider Family Medicine; Visit Provider Hospitalist
DX: R00.1 Bradycardia, unspecified (principal); M54.2 Cervicalgia; R06.00 Dyspnea, unspecified; R11.2 Nausea with vomiting, unspecified; I10 Essential (primary) hypertension; R94.31 Abnormal electrocardiogram [ECG] [EKG]; R09.02 Hypoxemia; I95.9 Hypotension, unspecified
CPT/HCPCS: 36415; 36416; 71045; 71275; 72125; 80053; 80061; 80306; 82962; 83036; 84443; 84484; 85025; 85378; 85730; 93005; 93306; 96365; 96366; 96367; 96372; 96375; 96376; 97165; 99291; G0378; J1265; J1644; J1650; J2270; J2405; J7030